=== PATIENT | female | born 1970 | race Caucasian/White ===

== ENCOUNTER 2022-05-10 10:20 | Emergency (ER) | payer SELFPAY ==
--- NOTE | 2022-05-10 10:52 | ERPHSYRPT ---
- History of Present Illness Time Seen by Provider: 05/10/22 10:45 Source: patient Exam Limitations: no limitations Patient Subjective Stated Complaint: pt reports rash noted to her left ribs, reports history of shingles and suspects another outbreak Triage Nursing Assessment: pt is aox3, appears in pain, afebrile, resps easy and non labored, cap refill < 3 seconds, radial pulses strong and equal, pt skin pink warm dry, pt with flat darker red rash noted to the left ribs and left lateral breast, does not cross middle, skin is intact, painful to touch. Physician History: pt reports rash noted to her left ribs, reports history of shingles and suspects another outbreak Timing/Duration: today Severity: moderate Associated Symptoms: denies symptoms Allergies/Adverse Reactions: tramadol [From Ultram] Allergy (Severe, Verified 05/10/22 10:37) Hives warfarin [From Coumadin] Allergy (Verified 05/10/22 10:37) Hives gabapentin Adverse Reaction (Verified 05/10/22 10:37) Home Medications: Apixaban [Eliquis 5 mg Tablet] 5 mg PO BID 05/10/22 [History] dilTIAZem HCL [Diltiazem 24Hr ER (Xr)] 240 mg PO DAILY 05/10/22 [History] Hx Tetanus, Diphtheria Vaccination/Date Given: Yes Hx Influenza Vaccination/Date Given: Yes Hx Pneumococcal Vaccination/Date Given: Yes Immunizations Up to Date: Yes Travel Risk - International Travel Have you traveled outside of the country in past 3 weeks: No - Coronavirus Screening Are you exhibiting any of the following symptoms?: No - Vaccine Status Have you recieved a Covid-19 vaccination: Yes 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 - Vaccination Dates Date of 2cond Vaccination (if applicable): unk - Review of Systems Constitutional: No Fever, No Chills Eyes: No Symptoms Ears, Nose, & Throat: No Symptoms Respiratory: No Cough, No Dyspnea Cardiac: No Chest Pain, No Edema, No Syncope Abdominal/Gastrointestinal: No Abdominal Pain, No Nausea, No Vomiting, No Diarrhea Genitourinary Symptoms: No Dysuria Musculoskeletal: No Back Pain, No Neck Pain Skin: Rash (left side chest wall) Neurological: No Dizziness, No Focal Weakness, No Sensory Changes Psychological: No Symptoms Endocrine: No Symptoms All Other Systems: Reviewed and Negative - Past Medical History Pertinent Past Medical History: Yes Cardiac History: Arrhythmia Other Medical History: afib. B12 def - Past Surgical History Past Surgical History: Yes Cardiac: Other Gastrointestinal: Bowel Surgery, Other Musculoskeletal: Other Female Surgical History: Hysterectomy Other Surgical History: r achilles repair. cardiac ablation - Social History Smoking Status: Never smoker Drug Use: none Patient Lives Alone: No - Nursing Vital Signs Nursing Vital Signs: Initial Vital Signs Temperature 98 F 05/10/22 10:26 Pulse Rate 100 H 05/10/22 10:26 Respiratory Rate 20 05/10/22 10:26 Blood Pressure 136/84 05/10/22 10:26 O2 Sat by Pulse Oximetry 100 05/10/22 10:26 Pain Scale Pain Intensity 6 - Physical Exam General Appearance: no apparent distress, alert Eye Exam: PERRL/EOMI, eyes nml inspection Ears, Nose, Throat Exam: normal ENT inspection, TMs normal, pharynx normal, moist mucous membranes Neck Exam: normal inspection, non-tender, supple, full range of motion Respiratory Exam: normal breath sounds, lungs clear, No respiratory distress Cardiovascular Exam: regular rate/rhythm, normal heart sounds, normal peripheral pulses Gastrointestinal/Abdomen Exam: soft, normal bowel sounds, No tenderness, No mass Back Exam: normal inspection, normal range of motion, No CVA tenderness, No vertebral tenderness Extremity Exam: normal inspection, normal range of motion, pelvis stable Neurologic Exam: alert, oriented x 3, cooperative, normal mood/affect, nml cerebellar function, nml station & gait, sensation nml, other (hyperalgesia left side chest wall), No motor deficits Skin Exam: normal color, warm, dry, rash Lymphatic Exam: No adenopathy SpO2: 100 - Course Nursing assessment & vital signs reviewed: Yes - Progress Progress: unchanged - Departure Departure Disposition: Home Clinical Impression: Herpes zoster dermatitis Condition: Stable Critical Care Time: No Referrals: DOCTOR,NO FAMILY [Primary Care Provider] - Follow up/PCP as directed Instructions: Shingles (DC) Prescriptions: Acyclovir 800 mg [Acyclovir] 800 mg PO TID 15 Days #45 tablet Hydrocodone/Acetaminophen [Hydrocodone-Acetamin 10-325 mg] 1 each PO QID 5 Days #20 tablet MDD 4 Triamcinolone 0.1% Cream [Kenalog 0.1% Cream 15 gm] 1 gm TP QID #100 cm Methylprednisolone Packet [Medrol Dosepack] 4 mg PO UD #21 packet
[2022-05-10 11:04] VITALS: BP 132/78; PULSE 88
[2022-05-10 12:34] VITALS: O2SAT 100
== END 2022-05-10 11:00 | disposition home or self-care (01) ==
LOC: ED 10:20
DX: B02.9 Zoster without complications (principal); Z86.19 Personal history of other infectious and parasitic diseases; Z79.899 Other long term (current) drug therapy
CPT/HCPCS: 99281